=== PATIENT | female | born 1995 | race Caucasian/White ===

== ENCOUNTER 2016-12-19 13:10 | Emergency (ER) | payer OTHER ==
[~2016-12-19] VITALS: Ht 172.7 cm; Wt 72.0 kg
[~2016-12-19 13:10] MED LIST: AMBI5TAB PO; EPIP0.3I IM; GABA300 PO; LISD60 PO; NAPR500 PO; PERC5TAB12 PO; VORT10TA PO
[2016-12-19 13:11] VITALS: BP 137/75; PULSE 71; RESP 22; TEMP 97.9; O2SAT 96
[2016-12-19] MEDS ORDERED: SODIUM CHLOR 0.9% 1000 ML INJ 1,000 ML IV ONE (13:26)
[2016-12-19] MEDS ORDERED: ONDANSETRON HCL 4 MG/2 ML VIAL IVP ONE (13:30)
[2016-12-19] MEDS ORDERED: SODIUM CHLORIDE 0.9% FLUSH 5 ML FLUSH IVF PRN (13:30)
--- NOTE | 2016-12-19 13:40 | PD ---
HPI Chief Complaint: Syncope/Near-Syncope Time Seen by Provider: 13:33 Travel History International Travel<30 days: No Contact w/Intl Traveler<30days: No Traveled to known affect area: No History of Present Illness HPI Patient is a 21-year-old female presenting to the emergency department for evaluation after witnessed syncopal episode. Patient states that approximately 1225 this afternoon she was feeling nauseated in class, she got up to leave the room and subsequently passed out. She states her classmates told her she was out for approximately 3 minutes, when she woke up she was in a cold sweat. Patient states she hit her head when she fell. Patient reports having a fever 2 days ago 103.5 which was associated with a cough. She reports improvement in those symptoms however she continues to have neck and upper back pain. Patient reports pain when she flexes her neck. Patient is currently on her menstrual cycle, she states there is no way she could be , denies any sexual activity, she is not on any oral contraception. 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 She reports feeling fine prior to this episode this morning. PFSH Past Medical History Asthma: Yes (exercise induced asthma) Depression: Yes Heart Rhythm Problems: No Cardiovascular Problems: No High Cholesterol: No Chest Pain: No Congestive Heart Failure: No COPD: No Diminished Hearing: No Musculoskeletal: Yes (lower leg numness) Neurologic: Yes (guillian beret syndrome) Respiratory: Yes Sleep Apnea: No ?: Not LMP: 12/19/2016 Past Surgical History Tonsillectomy: Yes Social History Alcohol Use: No Tobacco Use: No Substance Use: No Allergies-Medications (Allergen,Severity, Reaction): Coded Allergies: Compazine (Unverified Allergy, Unknown, 12/19/16) Shellfish (Verified Allergy, Unknown, 12/19/16) Reported Meds & Prescriptions Reported Meds & Active Scripts Active Reported Ambien (Zolpidem Tartrate) 5 Mg Tab 5 Mg PO HS PRN Vyvanse (Lisdexamfetamine Dimesylate) 60 Mg Cap 60 Mg PO DAILY Brintellix (Vortioxetine) 10 Mg Tab 10 Mg PO DAILY Review of Systems Except as stated in HPI: all other systems reviewed are Neg General / Constitutional: Positive: Other (cold sweats), No: Fever, Chills Eyes: No: Blurred Vision HENT: Positive: Headaches, Neck Stiffness, Neck Pain Cardiovascular: No: Chest Pain or Discomfort Respiratory: Positive: Cough, No: Shortness of Breath Gastrointestinal: Positive: Nausea, No: Abdominal Pain Musculoskeletal: Positive: Myalgias, Arthralgias Neurologic: Positive: Syncope, Headache, No: Focal Abnormalities Physical Exam Narrative GENERAL: Well-developed, well-nourished, alert female. Resting comfortably in no acute distress. SKIN: Warm and dry. HEAD: Atraumatic. Normocephalic. EYES: Pupils equal and round. No scleral icterus. No injection or drainage. ENT: No nasal bleeding or discharge. Mucous membranes pink and moist. NECK: Trachea midline. No JVD. CARDIOVASCULAR: Regular rate and rhythm. No murmur appreciated. RESPIRATORY: No accessory muscle use. Scattered expiratory wheezing noted throughout. GASTROINTESTINAL: Abdomen soft, non-tender, nondistended. Hepatic and splenic margins not palpable. MUSCULOSKELETAL: No obvious deformities. No clubbing. No cyanosis. No edema. NEUROLOGICAL: Awake and alert. No obvious cranial nerve deficits. Motor grossly within normal limits. Normal speech. PSYCHIATRIC: Appropriate mood and affect; insight and judgment normal. Data Data Last Documented VS Vital Signs Date Time Temp Pulse Resp B/P Pulse Ox O2 Delivery O2 Flow Rate FiO2 12/19/16 14:30 82 16 110/75 100 12/19/16 13:55 Room Air 12/19/16 13:11 97.9 Orders Electrocardiogram (12/19/16 13:26) Complete Blood Count With Diff (12/19/16 13:26) Comprehensive Metabolic Panel (12/19/16 13:26) Magnesium (Mg) (12/19/16 13:26) Ckmb (Isoenzyme) Profile (12/19/16 13:26) Troponin I (12/19/16 13:26) Act Partial Throm Time (Ptt) (12/19/16 13:26) Prothrombin Time / Inr (Pt) (12/19/16 13:26) Urinalysis - C+S If Indicated (12/19/16 13:26) Chest, Single Ap (12/19/16 13:26) Ct Brain W/O Iv Contrast(Rout) (12/19/16 13:26) Ct Cerv Spine W/O Contrast (12/19/16 13:26) Ecg Monitoring (12/19/16 13:26) Iv Access Insert/Monitor (12/19/16 13:26) Oximetry (12/19/16 13:26) Ondansetron Inj (Zofran Inj) (12/19/16 13:30) Sodium Chloride 0.9% Flush (Ns Flush) (12/19/16 13:30) Sodium Chlor 0.9% 1000 Ml Inj (Ns 1000 M (12/19/16 13:26) Influenzae A/B Antigen (12/19/16 13:26) Ed Urine Pregnancytest Poc (12/19/16 13:26) Labs Laboratory Tests Test 12/19/16 12/19/16 13:53 14:43 White Blood Count 5.0 TH/MM3 Red Blood Count 4.49 MIL/MM3 Hemoglobin 13.5 GM/DL Hematocrit 40.3 % Mean Corpuscular Volume 89.8 FL Mean Corpuscular Hemoglobin 30.1 PG Mean Corpuscular Hemoglobin 33.5 % Concent Red Cell Distribution Width 13.7 % Platelet Count 182 TH/MM3 Mean Platelet Volume 9.7 FL Neutrophils (%) (Auto) 73.1 % Lymphocytes (%) (Auto) 17.0 % Monocytes (%) (Auto) 8.7 % Eosinophils (%) (Auto) 0.8 % Basophils (%) (Auto) 0.4 % Neutrophils # (Auto) 3.7 TH/MM3 Lymphocytes # (Auto) 0.9 TH/MM3 Monocytes # (Auto) 0.4 TH/MM3 Eosinophils # (Auto) 0.0 TH/MM3 Basophils # (Auto) 0.0 TH/MM3 CBC Comment DIFF FINAL Differential Comment Prothrombin Time 10.7 SEC Prothromb Time International 1.0 RATIO Ratio Activated Partial 29.0 SEC Thromboplast Time Sodium Level 138 MEQ/L Potassium Level 4.4 MEQ/L Chloride Level 104 MEQ/L Carbon Dioxide Level 27.1 MEQ/L Anion Gap 7 MEQ/L Blood Urea Nitrogen 13 MG/DL Creatinine 0.76 MG/DL Estimat Glomerular Filtration 96 ML/MIN Rate Random Glucose 91 MG/DL Calcium Level 8.6 MG/DL Magnesium Level 2.0 MG/DL Total Bilirubin 0.2 MG/DL Aspartate Amino Transf 18 U/L (AST/SGOT) Alanine Aminotransferase 16 U/L (ALT/SGPT) Alkaline Phosphatase 82 U/L Total Creatine Kinase 58 U/L Troponin I LESS THAN 0.02 NG/ML Total Protein 7.0 GM/DL Albumin 3.6 GM/DL Urine Color YELLOW Urine Turbidity CLEAR Urine pH 5.5 Urine Specific [place] 1.025 Urine Protein TRACE mg/dL Urine Glucose (UA) NEG mg/dL Urine Ketones NEG mg/dL Urine Occult Blood MOD Urine Nitrite NEG Urine Bilirubin NEG Urine Urobilinogen LESS THAN 2.0 MG/DL Urine Leukocyte Esterase NEG Urine RBC /hpf Urine WBC 2 /hpf Urine Squamous Epithelial <1 /hpf Cells Urine Mucus FEW /lpf Microscopic Urinalysis Comment CULT NOT INDICATED MDM Medical Decision Making Medical Screen Exam Complete: Yes Emergency Medical Condition: Yes Interpretation(s) Last Impressions Head CT 12/19/161325 Signed Impressions: Service Date/Time: Monday, December 19, 2016 15:13 - CONCLUSION: No acute intracranial disease. Haile Hi MD Chest X-Ray 12/19/161325 Signed Impressions: Service Date/Time: Monday, December 19, 2016 13:30 - CONCLUSION: Normal examination. Ceasar Wells MD Cervical Spine CT 12/19/161325 Signed Impressions: Service Date/Time: Monday, December 19, 2016 15:13 - CONCLUSION: 1. No fracture or subluxation. Haile Hi MD Laboratory Tests Test 12/19/16 12/19/16 13:53 14:43 White Blood Count 5.0 TH/MM3 Red Blood Count 4.49 MIL/MM3 Hemoglobin 13.5 GM/DL Hematocrit 40.3 % Mean Corpuscular Volume 89.8 FL Mean Corpuscular Hemoglobin 30.1 PG Mean Corpuscular Hemoglobin 33.5 % Concent Red Cell Distribution Width 13.7 % Platelet Count 182 TH/MM3 Mean Platelet Volume 9.7 FL Neutrophils (%) (Auto) 73.1 % Lymphocytes (%) (Auto) 17.0 % Monocytes (%) (Auto) 8.7 % Eosinophils (%) (Auto) 0.8 % Basophils (%) (Auto) 0.4 % Neutrophils # (Auto) 3.7 TH/MM3 Lymphocytes # (Auto) 0.9 TH/MM3 Monocytes # (Auto) 0.4 TH/MM3 Eosinophils # (Auto) 0.0 TH/MM3 Basophils # (Auto) 0.0 TH/MM3 CBC Comment DIFF FINAL Differential Comment Prothrombin Time 10.7 SEC Prothromb Time International 1.0 RATIO Ratio Activated Partial 29.0 SEC Thromboplast Time Sodium Level 138 MEQ/L Potassium Level 4.4 MEQ/L Chloride Level 104 MEQ/L Carbon Dioxide Level 27.1 MEQ/L Anion Gap 7 MEQ/L Blood Urea Nitrogen 13 MG/DL Creatinine 0.76 MG/DL Estimat Glomerular Filtration 96 ML/MIN Rate Random Glucose 91 MG/DL Calcium Level 8.6 MG/DL Magnesium Level 2.0 MG/DL Total Bilirubin 0.2 MG/DL Aspartate Amino Transf 18 U/L (AST/SGOT) Alanine Aminotransferase 16 U/L (ALT/SGPT) Alkaline Phosphatase 82 U/L Total Creatine Kinase 58 U/L Troponin I LESS THAN 0.02 NG/ML Total Protein 7.0 GM/DL Albumin 3.6 GM/DL Urine Color YELLOW Urine Turbidity CLEAR Urine pH 5.5 Urine Specific [place] 1.025 Urine Protein TRACE mg/dL Urine Glucose (UA) NEG mg/dL Urine Ketones NEG mg/dL Urine Occult Blood MOD Urine Nitrite NEG Urine Bilirubin NEG Urine Urobilinogen LESS THAN 2.0 MG/DL Urine Leukocyte Esterase NEG Urine RBC /hpf Urine WBC 2 /hpf Urine Squamous Epithelial <1 /hpf Cells Urine Mucus FEW /lpf Microscopic Urinalysis Comment CULT NOT INDICATED Vital Signs Date Time Temp Pulse Resp B/P Pulse Ox O2 Delivery O2 Flow Rate FiO2 12/19/16 13:11 97.9 71 22 137/75 96 Differential Diagnosis Viral syndrome versus cardiac arrhythmia versus electrolyte abnormality versus hypoglycemia versus CVA versus other Narrative Course Patient is a 21-year-old female presenting to the emergency department after witnessed syncopal episode that occurred approximately one hour prior to arrival. Patient does report fever and cough 2 days ago, she is not taken any Tylenol or ibuprofen this morning. She does have scattered expiratory wheezing noted on exam. Labs and imaging ordered and pending. Influenza ordered and pending. Patient based on telemetry monitoring, continuous pulse oximetry. She is resting comfortably, IV fluids and Zofran ordered. Chest x-ray shows no acute disease Influenza is negative CBC, chemistry, urinalysis is unremarkable. CT scan of the brain shows no acute abnormality, CT scan of the cervical spine is negative. Patient will be discharged home, she was given a copy of her lab work. She has a plan with her neurologist next week. She is encouraged to return to emergency department for any new or worsening symptoms in the interim. Patient was encouraged to eat regular meals, maintain adequate fluid intake. Patient verbalized understanding of discharge instructions. Patient is stable for discharge. Diagnosis Primary Impression: Syncope Qualified Code: R55 - Syncope, unspecified syncope type Referrals: Neurologist Primary Care Physician Patient Instructions: General Instructions, Syncope (DC) Additional Instructions: Follow-up with your primary doctor Follow-up with your neurologist as scheduled Maintain adequate fluid intake, eat regular meals Return to emergency department immediately for any new or worsening symptoms Med/Other Pt SpecificInfo: No Change to Meds Disposition: 01 DISCHARGE HOME Condition: Stable Sidra Nickerson Dec 19, 2016 13:40
[2016-12-19 13:55] VITALS: O2SAT 100
--- NOTE | 2016-12-19 14:00 | RADRPT ---
EXAM DATE/TIME: 12/19/2016 13:30 [facility] COMPARISON: No previous studies available for comparison. INDICATIONS : Patient became very nauseous during class and when she stood up to leave the room she passed out. MEDICAL HISTORY : None. SURGICAL HISTORY : None. ENCOUNTER: Initial ACUITY: 1 day PAIN SCORE: 0/10 LOCATION: chest FINDINGS: A single view of the chest demonstrates the lungs to be symmetrically aerated without evidence of mas s, infiltrate or effusion. The cardiomediastinal contours are unremarkable. Osseous structures are intact. CONCLUSION: Normal examination. Ceasar Wells MD on December 19, 2016 at 13:58 Board Certified Radiologist. This report was verified electronically.
[2016-12-19 14:07] LABS: AUTOMATED NEUTROPHIL # 3.7 TH/MM3 (1.8-7.7); BASOPHIL % 0.4 % (0.0-2.0); EOSINOPHIL % 0.8 % (0.0-4.0); HEMATOCRIT 40.3 % (35.0-46.0); HEMO FLAGS DIFF FINAL; LYMPHOCYTE # 0.9 TH/MM3 (1.0-4.8); MEAN CELL VOLUME 89.8 FL (80.0-100.0); MEAN CORPUSCULAR HEMOGLOBIN 30.1 PG (27.0-34.0); MEAN CORPUSCULAR HGB CONC 33.5 % (32.0-36.0); MONO % 8.7 % (0.0-8.0); NEUT % 73.1 % (16.0-70.0); PLATELET COUNT 182 TH/MM3 (150-450); RED BLOOD COUNT 4.49 MIL/MM3 (4.00-5.30); RED CELL DISTRIBUTION WIDTH 13.7 % (11.6-17.2)
[2016-12-19 14:15] LABS: PROTHROMBIN TIME - PATIENT 10.7 SEC (9.8-11.6)
[2016-12-19] MEDS ORDERED: VORT10TA PO (14:15)
[2016-12-19] MEDS ORDERED: AMBI5TAB PO (14:15)
[2016-12-19] MEDS ORDERED: LISD60 PO (14:15)
[2016-12-19 14:26] LABS: ALT (GPT) 16 U/L (10-53); ANION GAP 7 MEQ/L (5-15); AST (GOT) 18 U/L (15-37); BICARBONATE 27.1 MEQ/L (21.0-32.0); BLOOD UREA NITROGEN 13 MG/DL (7-18); CHLORIDE 104 MEQ/L (98-107); GLOMERULAR FILTRATION RATE 96 ML/MIN (>89); POTASSIUM 4.4 MEQ/L (3.5-5.1); SODIUM (NA) 138 MEQ/L (136-145)
[2016-12-19 14:30] VITALS: BP 110/75; PULSE 82; RESP 16; O2SAT 100
[2016-12-19 14:30] LABS: ALKALINE PHOSPHATASE 82 U/L (45-117); TOTAL BILIRUBIN ADULT 0.2 MG/DL (0.2-1.0)
[2016-12-19 14:39] LABS: CREATINE KINASE 58 U/L (26-192)
--- NOTE | 2016-12-19 15:23 | RADRPT ---
EXAM DATE/TIME: 12/19/2016 15:13 [facility] COMPARISON: No previous studies available for comparison. INDICATIONS : Syncope and dizziness. RADIATION DOSE: 34.93 CTDIvol (mGy) MEDICAL HISTORY : None SURGICAL HISTORY : None. ENCOUNTER: Initial ACUITY: 1 day PAIN SCALE: 5/10 LOCATION: cranial TECHNIQUE: Multiple contiguous axial images were obtained of the head. Using automated exposure control and adj ustment of the mA and/or kV according to patient size, radiation dose was kept as low as reasonably a chievable to obtain optimal diagnostic quality images. FINDINGS: CEREBRUM: The ventricles are normal for age. No evidence of midline shift, mass lesion, hemorrhage or acute in farction. No extra-axial fluid collections are seen. POSTERIOR FOSSA: The cerebellum and brainstem are intact. The 4th ventricle is midline. The cerebellopontine angle i s unremarkable. EXTRACRANIAL: The visualized portion of the orbits is intact. SKULL: The calvaria is intact. No evidence of skull fracture. CONCLUSION: No acute intracranial disease. Haile Hi MD on December 19, 2016 at 15:21 Board Certified Radiologist. This report was verified electronically.
[2016-12-19 15:31] LABS: BLOOD, URINE MOD (NEG); COMMENT (UR) CULT NOT INDICATED; CULTURE IF INDICATED CULT NOT INDICATED; GLUCOSE,URINE NEG (NEG); KETONE, URINE NEG (NEG); MUCUS URINE FEW /lpf (OCC); NITRITE,URINE NEG (NEG); PH, URINE 5.5 (5.0-8.5); SQUAMOUS EPITHELIAL CELL URINE <1 /hpf (0-5); URINE COLOR YELLOW (YELLW/STRAW)
--- NOTE | 2016-12-19 15:54 | RADRPT ---
EXAM DATE/TIME: 12/19/2016 15:13 [facility] COMPARISON: No previous studies available for comparison. INDICATIONS : Dizziness and syncope. RADIATION DOSE: 16.03 CTDIvol (mGy) MEDICAL HISTORY : None SURGICAL HISTORY : None. ENCOUNTER: Initial ACUITY: 1 day PAIN SCALE: 5/10 LOCATION: neck TECHNIQUE: Volumetric scanning of the cervical spine was performed. Multiplanar reconstructions in the sagittal, coronal and oblique axial planes were performed. Using automated exposure control and adjustment o f the mA and/or kV according to patient size, radiation dose was kept as low as reasonably achievable to obtain optimal diagnostic quality images. FINDINGS: VERTEBRAE: Normal vertebral body height. No fracture. Disc spaces are maintained. ALIGNMENT: No evidence of subluxation. Facets are well aligned. Craniocervical junction and tach. C2-C3: The bony spinal canal is normal in size. No evidence of disc bulge or herniation. The neural forami na are bilaterally patent. C3-C4: The bony spinal canal is normal in size. No evidence of disc bulge or herniation. The neural forami na are bilaterally patent. C4-C5: The bony spinal canal is normal in size. No evidence of disc bulge or herniation. The neural forami na are bilaterally patent. C5-C6: The bony spinal canal is normal in size. No evidence of disc bulge or herniation. The neural forami na are bilaterally patent. C6-C7: The bony spinal canal is normal in size. No evidence of disc bulge or herniation. The neural forami na are bilaterally patent. C7-T1: The bony spinal canal is normal in size. No evidence of disc bulge or herniation. The neural forami na are bilaterally patent. CONCLUSION: 1. No fracture or subluxation. Haile Hi MD on December 19, 2016 at 15:51 Board Certified Radiologist. This report was verified electronically.
--- NOTE | 2016-12-20 11:24 | EKG ---
Date Performed: 12/19/2016 Time Performed: 13:38:04 PTAGE: 21 years EKG: Sinus rhythm EARLY REPOLARIZATION BORDERLINE ECG NO PREVIOUS TRACING DOCTOR: Ceasar Maradiaga Interpretating Date/Time 12/20/2016 11:22:41
== END 2016-12-19 16:22 | disposition home or self-care (01) ==
LOC: NEPE 13:10
DX: R55 Syncope and collapse (principal); R11.0 Nausea; J45.990 Exercise induced bronchospasm; M54.89 Other dorsalgia; R94.31 Abnormal electrocardiogram [ECG] [EKG]; M54.2 Cervicalgia; W01.0XXA Fall on same level from slipping, tripping and stumbling without subsequent striking against object, initial encounter; Y92.219 Unspecified school as the place of occurrence of the external cause
CPT/HCPCS: 70450; 71010; 72125; 80053; 81001; 82550; 83735; 84484; 84703; 85025; 85610; 85730; 87804; 93005; 96361; 96374; 99284; J2405; J7030